=== PATIENT | female | born 1940 | race African-American/Black ===

== ENCOUNTER → 2020-07-30 | Outpatient (CLI) | payer OTHER | LOC: SJCVC 12:53 | PROVIDERS: ATTEND Internal Medicine | DX: I10 Essential (primary) hypertension (principal) ==

== ENCOUNTER → 2020-09-14 | Outpatient (CLI) | payer OTHER | LOC: SJCVCIMAG 08:55 | PROVIDERS: ATTEND Internal Medicine | DX: I49.3 Ventricular premature depolarization (principal); I10 Essential (primary) hypertension; E78.5 Hyperlipidemia, unspecified; Z79.82 Long term (current) use of aspirin; Z79.899 Other long term (current) drug therapy ==

== ENCOUNTER → 2020-10-05 | Outpatient (CLI) | payer OTHER | LOC: SJCVC 15:05 | PROVIDERS: ATTEND Internal Medicine | DX: I10 Essential (primary) hypertension (principal); Z72.89 Other problems related to lifestyle; Z98.890 Other specified postprocedural states ==

== ENCOUNTER → 2020-10-26 | Outpatient (CLI) | payer OTHER | LOC: SJCVC 14:56 | PROVIDERS: ATTEND Internal Medicine | DX: I10 Essential (primary) hypertension (principal); E78.5 Hyperlipidemia, unspecified; E78.00 Pure hypercholesterolemia, unspecified; E66.9 Obesity, unspecified; Z98.890 Other specified postprocedural states; Z79.82 Long term (current) use of aspirin; Z79.899 Other long term (current) drug therapy; Z82.49 Family history of ischemic heart disease and other diseases of the circulatory system ==

== ENCOUNTER → 2021-01-13 | Outpatient (CLI) | payer OTHER | LOC: CAT 09:18 | PROVIDERS: ATTEND Nurse Practitioner | DX: G31.9 Degenerative disease of nervous system, unspecified (principal); I63.9 Cerebral infarction, unspecified ==

== ENCOUNTER → 2021-01-25 | Outpatient (CLI) | payer OTHER | LOC: SJCVC 16:35 | PROVIDERS: ATTEND Internal Medicine | DX: E78.00 Pure hypercholesterolemia, unspecified (principal); E78.5 Hyperlipidemia, unspecified; I10 Essential (primary) hypertension; R53.83 Other fatigue; E66.9 Obesity, unspecified; Z68.41 Body mass index [BMI] 40.0-44.9, adult; Z72.89 Other problems related to lifestyle; Z79.82 Long term (current) use of aspirin; Z79.899 Other long term (current) drug therapy ==

== ENCOUNTER → 2021-02-15 | Outpatient (CLI) | payer OTHER | LOC: SJCVC 13:49 | PROVIDERS: ATTEND Internal Medicine | DX: I10 Essential (primary) hypertension (principal); R06.09 Other forms of dyspnea; E78.00 Pure hypercholesterolemia, unspecified; E66.9 Obesity, unspecified; E78.5 Hyperlipidemia, unspecified; Z79.82 Long term (current) use of aspirin; Z79.899 Other long term (current) drug therapy; Z82.49 Family history of ischemic heart disease and other diseases of the circulatory system ==

== ENCOUNTER → 2021-03-15 | Outpatient (CLI) | payer OTHER | LOC: SJCVC 09:13 | PROVIDERS: ATTEND Internal Medicine | DX: I10 Essential (primary) hypertension (principal); E78.00 Pure hypercholesterolemia, unspecified; E66.9 Obesity, unspecified; E78.5 Hyperlipidemia, unspecified; Z82.49 Family history of ischemic heart disease and other diseases of the circulatory system; Z79.82 Long term (current) use of aspirin; Z79.899 Other long term (current) drug therapy; Z72.89 Other problems related to lifestyle ==

== ENCOUNTER → 2021-04-19 | Outpatient (CLI) | payer OTHER | LOC: SJCVC 13:38 | PROVIDERS: ATTEND Internal Medicine | DX: I10 Essential (primary) hypertension (principal); R06.00 Dyspnea, unspecified; E78.5 Hyperlipidemia, unspecified; E78.00 Pure hypercholesterolemia, unspecified; E66.9 Obesity, unspecified; Z72.89 Other problems related to lifestyle; Z95.818 Presence of other cardiac implants and grafts; Z79.82 Long term (current) use of aspirin; Z79.899 Other long term (current) drug therapy; Z82.49 Family history of ischemic heart disease and other diseases of the circulatory system ==

== ENCOUNTER → 2021-08-30 | Outpatient (CLI) | payer OTHER | LOC: SJCVC 13:06 | PROVIDERS: ATTEND Internal Medicine | DX: I45.19 Other right bundle-branch block (principal); I10 Essential (primary) hypertension; R53.83 Other fatigue; E78.5 Hyperlipidemia, unspecified; E78.00 Pure hypercholesterolemia, unspecified; E66.9 Obesity, unspecified; Z79.82 Long term (current) use of aspirin; Z79.899 Other long term (current) drug therapy; Z98.890 Other specified postprocedural states ==

== ENCOUNTER → 2021-09-08 | Outpatient (CLI) | payer OTHER | LOC: ULTRA 11:22 | PROVIDERS: ATTEND Nurse Practitioner | DX: K76.0 Fatty (change of) liver, not elsewhere classified (principal); R10.13 Epigastric pain; R11.0 Nausea ==

== ENCOUNTER 2021-10-17 19:52 | Inpatient (IN) | payer OTHER ==
[~2021-10-17] VITALS: Ht 162.6 cm; Wt 106.1 kg
[~2021-10-17 19:52] MED LIST changes: -DILTIAZEM HCL90 MG PO; -FLOVENT HFA 4444 MCG INH; -LEVOFLOXACIN500 MG PO; -PREDNISONE 20 M20 MG PO
[2021-10-17 20:50] LABS: ABSOLUTE NEUTROPHILS 5.9 thou/uL (1.4-8.2); EOSINOPHILS 9.8 % (0.0-3.0); HEMOGLOBIN 11.6 gm/dL (12.0-15.0); LYMPHOCYTES 19.9 % (24.0-44.0); MCH 26.2 pg (26.0-34.0); MCHC 32.2 g/dL (28.0-37.0); MCV 81.3 fL (80.0-100.0); MONOCYTES 7.7 % (1.0-8.0); PLATELET COUNT 309 thou/uL (150-400); POLYS 61.6 % (36.0-66.0); RBC 4.43 mil/uL (4.20-5.00); RDW 15.7 % (10.5-14.5); WBC 9.6 thou/uL (4.0-11.0)
[2021-10-17 20:58] LABS: CALCIUM 9.6 mg/dL (8.5-10.1); POTASSIUM 3.8 mmol/L (3.5-5.1)
[2021-10-17 21:04] LABS: APTT 27.1 Seconds (24.5-32.8); PROTIME 10.9 Seconds (10.5-12.1)
[2021-10-17 21:09] LABS: ALBUMIN 3.9 g/dL (3.4-5.0); TOTAL BILIRUBIN 0.4 mg/dL (0.2-1.0); TOTAL PROTEIN 7.7 g/dL (6.4-8.2)
[2021-10-17 21:32] VITALS: BP 138/63
[2021-10-17] MEDS ORDERED: DILTIAZEM HCL90 MG PO (21:45)
[2021-10-17 22:31] LABS: URINE BILIRUBIN NEGATIVE (Negative); URINE BLOOD NEGATIVE (Negative); URINE CLARITY CLEAR; URINE COLOR YELLOW; URINE GLUCOSE-RANDOM* NEGATIVE (Negative); URINE KETONES NEGATIVE (Negative); URINE LEUKOCYTES-REFLEX NEGATIVE (Negative); URINE NITRITE-REFLEX NEGATIVE (Negative); URINE PROTEIN (DIPSTICK) 1+ (Negative); URINE SPECIFIC GRAVITY >= 1.030 (1.005-1.035)
[2021-10-17 22:54] LABS: BACTERIA-REFLEX 1-9 Few /HPF (None Seen); CRYSTALS None Seen /LPF (None Seen); HYALINE CASTS 4-10 Moderate /LPF (None Seen); MUCUS 4-6 Moderate strn/LPF (None Seen); SQUAMOUS 4-10 Moderate /LPF (0-3); URINE RBC 1-2 Rare /HPF (NONE SEEN); URINE WBC-REFLEX 0-5 Rare /HPF (0-5)
[2021-10-18 00:12] VITALS: BP 128/69
[2021-10-18 06:17] LABS: HEMOGLOBIN 11.1 gm/dL (12.0-15.0); MCH 26.2 pg (26.0-34.0); MCHC 31.8 g/dL (28.0-37.0); MCV 82.2 fL (80.0-100.0); RBC 4.25 mil/uL (4.20-5.00); RDW 15.6 % (10.5-14.5); WBC 6.6 thou/uL (4.0-11.0)
[2021-10-18 06:53] LABS: CALCIUM 9.2 mg/dL (8.5-10.1); CREATININE 1.1 mg/dL (0.6-1.0); POTASSIUM 4.2 mmol/L (3.5-5.1)
--- NOTE | 2021-10-18 07:10 | NUR ---
Pt report received from GENEVA Muir.
--- NOTE | 2021-10-18 10:03 | EKG ---
[facility] [employer] [place] [address] ELECTROCARDIOGRAM REPORT Name: KATIE WILKES Room #: 170-4 ADM IN M.R.#: [id number] Admission: 10/17/21 Attend Phys: Darrell Veras Discharge: Date of : 42 Report #: [id number] [facility] ED Test Date: 2021-10-17 Test Time: 20:42:13 Pat Name: KATIE WILKES Department: Room: 170 Gender: F It Program Manager: YEN : 1940 Requested By: Thierry Cardoza Order Number: [id number] MD: Angelo Gao Measurements Intervals [place] Rate: 88 P: 60 TX: 234 QRS: -54 QRSD: 109 T: 51 QT: 393 QTc: 476 Interpretive Statements Sinus rhythm Ventricular premature complex Prolonged TX interval Abnormal R-wave progression, late transition Inferior infarct, old Compared to ECG 11/13/1993 22:03:00 Ventricular premature complex(es) now present Inferior Q waves are more prominent Electronically Signed On 10-18-2021 7:52:15 OR FIRST ASSIST REGISTERED NURSE by Angelo Gao [email or web address] <ELECTRONICALLY SIGNED> By: Angelo Gao MD, [facility] 10/18/21 075 41 41 Angelo Gao MD, [facility] /EPI
[2021-10-18 10:18] VITALS: BP 144/79
[2021-10-18] MEDS ORDERED: LEVOFLOXACIN500 MG PO (11:33)
--- NOTE | 2021-10-18 11:35 | 2DMMODE ---
[facility] [place] [address] 2 D/M-MODE ECHOCARDIOGRAM Name: CHUNGKATIE Travis Room #: 170-4 ADM IN .R.#: [id number] Admission: 10/17/21 Attend Phys: Darrell Veras Discharge: Date of : 42 Report #: [id number] THIS REPORT FOR: cc: Cyndie Dozier Beth RNP Santiago, Patrick MD [facility] ~ APPROVED REPORT Study performed: 10/18/2021 10:55:36 EXAM: Comprehensive 2D, Doppler, and color-flow Echocardiogram Patient Location: ER Status: routine BSA: 2.09 HR: 80 bpm BP: 152/60 mmHg Rhythm: NSR Other Information Study Quality: Adequate Technically limited study due to morbid obesity, unable to position. Indications Short of breath, ? Heart failure. HTN, HLP. 2D Dimensions RVDd: 29.14 mm IVSd: 9.76 (7-11mm) LVOT Diam: 19.89 (18-24mm) LVDd: 38.86 mm PWd: 9.39 (7-11mm) LVDs: 27.19 (25-40mm) Left Atrium: 33.81 (27-40mm) Aortic Root: 27.79 mm Volumes Left Atrial Volume (Systole) Single Plane 4CH: 25.41 mL Single Plane 2CH: 45.31 mL LA ESV Index: 19.00 mL/m2 Aortic Valve AoV Peak Sebastian.: 1.52 m/s [facility] [address] [place] [address] 2 D/M-MODE ECHOCARDIOGRAM Name: KATIE WILKES Travis Room #: 170-4 [facility] IN .R.#: [id number] Admission: 10/17/21 Attend Phys: Darrell Hernandez Discharge: Date of : 42 Report #: [id number] AO Peak Gr.: 9.19 mmHg LVOT Max P.26 mmHg LVOT Max V: 0.90 m/s MANUELA Vmax: 1.85 cm2 Mitral Valve E/A Ratio: 0.5 MV Decel. Time: 287.42 ms MV E Max Sebastian.: 0.61 m/s MV A Sebastian.: 1.20 m/s MV PHT: 83.35 ms IVRT: 101.50 ms Pulmonary Valve PV Peak Sebastian.: 1.14 m/s PV Peak Gr.: 5.19 mmHg Tricuspid Valve TR Peak Sebastian.: 2.98 m/s RAP Estimate: 5.00 mmHg TR Peak Gr.: 35.41 mmHg PA Pressure: 40.00 mmHg Left Ventricle The left ventricle is normal size. There is normal LV segmental wall motion. There is normal left ventricular wall thickness. Left ventricular systolic function is normal. LVEF is 65%. Mild diastolic dysfunction is present (impaired relaxation pattern). Right Ventricle The right ventricle is normal size. The right ventricular systolic function is normal. Atria The left atrium size is normal. The right atrium size is normal. Aortic Valve The aortic valve is normal in structure, mildly calcified. No aortic regurgitation is present. There is no aortic valvular stenosis. Mitral Valve The mitral valve is normal in structure. Mild mitral annular calcification. There is no mitral valve regurgitation noted. No evidence of mitral valve stenosis. Tricuspid Valve The tricuspid valve is normal in structure. Mild tricuspid [facility] [address] [place] [address] 2 D/M-MODE ECHOCARDIOGRAM Name: KATIE WILKES Room #: 1704 [facility] IN ..#: [id number] Admission: 10/17/21 Attend Phys: Darrell Hernandez Discharge: Date of : 42 Report #: [id number] regurgitation. Estimated PAP is 40mmHg. Pulmonic Valve Pulmonic valve is not well visualized. Great Vessels The aortic root is normal in size. Ascending aorta is not well visualized. IVC is normal in size and collapses >50% with inspiration. Pericardium There is no pericardial effusion. <Conclusion> Normal left ventricle size/wall thickness Hyperdynamic systolic function ejection fraction 65% Normal right ventricle size/function None normal atrial size Normal aortic valve structure and function Mild mitral annular calcification No mitral valve insufficiency Mild tricuspid valve insufficiency Pulmonary systolic pressure estimated 40 mmHg No pericardial effusion Normal aortic root size. <ELECTRONICALLY SIGNED> By: Janes Valenzuela MD, [facility] 10/18/21 1135 1135 34 Janes Valenzuela MD, [facility] /INF
--- NOTE | 2021-10-18 12:32 | NUR ---
PT ADMITTED RELATED TO DYSPNEA AND BRONCHOSPASM. CM REVIEWED CHART AND SPOKE WITH CARE TEAM. CM CALLED AND SPOKE WITH PT ON HER CELL PHONE THIS AM . PT APPEARED TO BE A&O X4. CM ROLE INTRODUCED. PT INDICATED SHE LIVES ALONE IN A HOUSE. PT INDICATED THERE ARE 2 STEPS TO ENTER AND NONE SHE USES INSIDE. 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 PT INDICATED NO DME. PT INDICATED SHE SEES [employer]. PT ASKED ABOUT A 4WW WITH A SET FOR HOME USE UPON DC. PT INDICATED NO PROFERANCE IN PROVIDERS CM ASKED IF PROVIDER PLUS MAY BE ABLE TO FILL AWAITING RESPONSE. CARE TEAM HAD INITIALLY INDICATED DC TODAY BUT NOW STATING DC TOMORROW. PT IS AWARE. CM ASKED IF PT WILL NEED NEBULIZER FOR HOME USE WELL. CM FOLLOWING.
--- NOTE | 2021-10-18 19:06 | NUR ---
Pt report given to GENEVA Morales
[2021-10-18 20:27] VITALS: BP 129/56
[2021-10-18 20:50] VITALS: BP 139/67
[2021-10-18 21:46] VITALS: BP 131/51
--- NOTE | 2021-10-19 05:00 | NUR ---
new admission for dyspea. patient aox4 makes needs known. patient ambulates with steady gaits. food and fluid offered.patient is on room air no soa or distress noted this shift. patient has a non productive cough.patient is up at yadira. patient in bed asleep at this time breathing regular and unlaboured.
[2021-10-19 08:30] VITALS: BP 152/65
[2021-10-19] MEDS ORDERED: PREDNISONE 20 M20 MG PO (09:10)
--- NOTE | 2021-10-19 09:21 | NUR ---
ASSUMED PT CARE THIS AM. PT IS ALERT & ORIENTED X4. PT HAS IV SITE ON LAC. GIVEN SCHEDULED MEDICATIONS THIS AM WITHOUT DIFFICULTIES. PT IS ON ROOM AIR. NO C/O OF PAIN, NAUSEA AND VOMITING. PHYSICAL THERAPY WORKING WITH PATIENT THIS AM. WILL CONTINUE TO MONITOR PT. FOLLOW POC.
[2021-10-19] MEDS ORDERED: FLOVENT HFA 4444 MCG INH (10:17)
[2021-10-19 11:53] VITALS: BP 144/67
[2021-10-19 15:42] VITALS: BP 157/58
[2021-10-19 20:06] VITALS: BP 155/58
[2021-10-20 05:46] VITALS: BP 141/55
--- NOTE | 2021-10-20 06:04 | NUR ---
PATIENT AOX4 MAKES NEEDS KNOWN. NO SOA OR DISTRESS NOTED THIS SHIFT.PATIENT HAS NON PRODUCTIVE COUGH. PATIENT IS UP AT TRAV. PATIENT IN BED ASLEEP AT THIS TIME BREATHING REGULAR AND UNLABOURED.
[2021-10-20 07:55] VITALS: BP 140/59
[2021-10-20 10:22] VITALS: BP 140/59
[2021-10-20 11:30] VITALS: BP 143/69
== END 2021-10-20 15:18 | disposition home or self-care (01) | DRG 203 ==
LOC: ER 19:52 → EROBS 21:04 → 4S 21:04
PROVIDERS: Emergency Medicine; Nurse Practitioner Family; ADMIT Hospitalist; ATTEND Hospitalist
DX: J20.9 Acute bronchitis, unspecified (principal); I10 Essential (primary) hypertension; E78.5 Hyperlipidemia, unspecified; Z20.822 Contact with and (suspected) exposure to COVID-19; I25.10 Atherosclerotic heart disease of native coronary artery without angina pectoris
CPT/HCPCS: 10100

== ENCOUNTER → 2021-10-17 | Outpatient (CLI) | payer OTHER ==
[~2021-10-17] VITALS: Ht 162.6 cm; Wt 106.1 kg
[~2021-10-17] MED LIST: ASA81BEC PO; DILTIAZEM HCL90 MG PO; FLOVENT HFA 4444 MCG INH; LEVOFLOXACIN500 MG PO; PREDNISONE 20 M20 MG PO; SIMVASTATIN40 MG PO; TOPAMAX 25 MG T25 M1 PO; TOPROL XL100 MG PO; VALSARTAN-HCTZ1 EAC1 PO; VITAMIN D325 MC3 PO
--- NOTE | 2021-10-18 13:12 | NUR ---
0930- PT ADMITTED TO GI PREOP FOR SCHEDULED EGD. IV STARTED IN R HAND 500ML NS. BREATHING TX ORDERED PER ANESTHESIA. RT PERFORMED AT BEDSIDE. AFTER SPEAKING TO DR RODRIGEZ, IT WAS DETERMINED THE PROCEDURE DID NOT NEED TO BE DONE AT THIS TIME, AND WAS CANCELLED. IV DISCONTINUED WITH CATH INTACT. TAKEN TO CAR VIA W/C IN STABLE CONDITION.
== END | disposition home or self-care (01) ==
LOC: GI 08:19
PROVIDERS: ATTEND Internal Medicine Gastroenterology
DX: R06.00 Dyspnea, unspecified (principal); Z53.8 Procedure and treatment not carried out for other reasons; I10 Essential (primary) hypertension; E78.00 Pure hypercholesterolemia, unspecified; Z98.890 Other specified postprocedural states; Z79.899 Other long term (current) drug therapy

== ENCOUNTER → 2021-11-18 | Outpatient (CLI) | payer OTHER ==
[~2021-11-18] MED LIST changes: +DILTIAZEM 24HR180 M1 PO; +DILTIAZEM HCL90 MG PO; +FLOVENT HFA 4444 MCG INH; +LEVOFLOXACIN500 MG PO; +PREDNISONE 20 M20 MG PO; +VITAMIN D350 MCG PO
== END ==
LOC: SJCVC 13:56
PROVIDERS: ATTEND Internal Medicine
DX: R06.09 Other forms of dyspnea (principal); I10 Essential (primary) hypertension; E78.00 Pure hypercholesterolemia, unspecified; E78.5 Hyperlipidemia, unspecified; Z98.890 Other specified postprocedural states; Z72.89 Other problems related to lifestyle; Z79.82 Long term (current) use of aspirin; Z79.899 Other long term (current) drug therapy

== ENCOUNTER → 2021-11-21 | Outpatient (CLI) | payer OTHER ==
[~2021-11-21] VITALS: Ht 160 cm; Wt 104.3 kg
== END | disposition home or self-care (01) ==
LOC: GI
PROVIDERS: ATTEND Internal Medicine Gastroenterology
DX: R10.13 Epigastric pain (principal); K29.70 Gastritis, unspecified, without bleeding; K44.9 Diaphragmatic hernia without obstruction or gangrene; R11.2 Nausea with vomiting, unspecified; R63.0 Anorexia; I10 Essential (primary) hypertension; E78.00 Pure hypercholesterolemia, unspecified; Z98.890 Other specified postprocedural states; Z79.899 Other long term (current) drug therapy; Z20.822 Contact with and (suspected) exposure to COVID-19
CPT/HCPCS: 62110; 62900